=== PATIENT | female | born 1975 | race Caucasian/White ===

== ENCOUNTER 2017-12-06 11:03 | Day surgery (SDC) | payer BC ==
[~2017-12-06] VITALS: Ht 165.1 cm; Wt 59.9 kg
[2017-12-06] MEDS ORDERED: IOHEXOL 100 ML IV ONE (12:44)
[2017-12-06] MEDS ORDERED: fentaNYL CITRATE/PF 100 MCG/2 ML AMP IVP ONE (14:40)
[2017-12-06] MEDS ORDERED: PROPOFOL 200MG/ 20ML VIAL (DIPRIVAN) IV ONE (14:40)
[2017-12-06] MEDS ORDERED: DIPHENHYDRAMINE INJ 50 MG/ML VIAL IVP ONE (14:40)
[2017-12-06] MEDS ORDERED: NS 1000 ML BAG IV ONE (14:40)
[2017-12-06] MEDS ORDERED: KETOROLAC TROMETHAMINE 30 MG VIAL IVP ONE (14:40)
[2017-12-06] MEDS ORDERED: SEVOFLURANE 15 MIN GAS INH ONE (14:40)
[2017-12-06] MEDS ORDERED: CEFAZOLIN 1 GM IVPB PREMIX 50 ML IV ONE (14:40)
[2017-12-06] MEDS ORDERED: MIDAZOLAM HCL 5 MG/5 ML VIAL IVP ONE (14:40)
[2017-12-06] MEDS ORDERED: ONDANSETRON HCL 4 MG/2 ML VIAL IVP ONE (14:40)
[2017-12-06] MEDS ORDERED: METOCLOPRAMIDE HCL 10 MG/2 ML VIAL IVP PRN (15:15)
[2017-12-06] MEDS ORDERED: MORPHINE 4 MG/ML INJ. SYRINGE IVP PRN ×3 (15:15)
[2017-12-06] MEDS ORDERED: NACL 0.9% 1,000 ML IV SCH (15:15)
[2017-12-06 16:27] VITALS: BP_SYST 112
== END 2017-12-06 17:32 | disposition home or self-care (01) ==
LOC: SDS 11:03 → SMU 11:03 → EDSTATUS 13:00 → SDS 17:32
PROVIDERS: ATTEND Specialist
DX: N88.2 Stricture and stenosis of cervix uteri (principal); M48.02 Spinal stenosis, cervical region
CPT/HCPCS: 58340; 76000; J0690; J1200; J1885; J2250; J2405; J2704; J3010; J7030; J7120; Q9967